=== PATIENT | male | born 1970 | race Caucasian/White ===

== ENCOUNTER → 2017-12-05 | Outpatient (CLI) | payer BC ==
[~2017-12-05] MED LIST: ADDERALL 30 MG30 MG PO; FLEXERIL PO; NORCO 5-325 TA1 EACH PO
== END ==
LOC: M.CT 16:49
DX: R51 Headache (principal)

== ENCOUNTER → 2018-09-29 | Outpatient (CLI) | payer BC | LOC: M.RAD 12:19 | DX: R07.89 Other chest pain (principal) ==